=== PATIENT | female | born 1945 | race Caucasian/White ===

== ENCOUNTER 2017-06-05 18:42 | Inpatient (IN) | payer OTHER ==
[2017-06-05] MEDS ORDERED: ZOSYN VIAL 2.25 GM 2.25 GM in NS 100 ML IV + SPIKE MINIBAG* 100 ML IV SCH (20:52)
[2017-06-05 21:58] LABS: BASOPHILS % (AUTO) 0.6 % (0.2-1.0); EOSINOPHILS % (AUTO) 0.2 % (0.9-2.9); HEMATOCRIT 32.4 % (36.0-47.0); LYMPHOCYTES # (AUTO) 2.1 X10^3/uL (1.3-2.9); LYMPHOCYTES % (AUTO) 32.4 % (21.0-51.0); MEAN CORPUSCULAR HEMOGLOBIN 33.1 pg (27.0-34.0); MEAN CORPUSCULAR HGB CONC 33.9 g/dL (33.0-35.0); MEAN CORPUSCULAR VOLUME 97.5 fL (80.0-100.0); MEAN PLATELET VOLUME 9.6 fL (7.4-11.0); MONOCYTES # (AUTO) 0.6 x10^3/uL (0.3-0.8); MONOCYTES % (AUTO) 8.5 % (0.0-13.0); NEUTROPHILS # (AUTO) 3.9 x10^3/uL (2.2-4.8); NEUTROPHILS % (AUTO) 58.3 % (42.0-75.0); PLATELET COUNT 113 X10^3/uL (150.0-450.0); RED BLOOD COUNT 3.32 X10^6/uL (3.5-5.4); WHITE BLOOD COUNT 6.6 X10^3/uL (3.6-10.0)
[2017-06-05 22:09] LABS: ALANINE AMINOTRANSFERASE 25 Units/L (12-78); ALBUMIN 3.7 g/dL (3.4-5.0); ALKALINE PHOSPHATASE 48 Units/L (46-116); ASPARTATE AMINO TRANSFERASE 39 Units/L (15-37); BLOOD UREA NITROGEN 41 mg/dL (7-18); CALCIUM 8.8 mg/dL (8.5-10.1); CARBON DIOXIDE 23.3 mmol/L (21-32); CHLORIDE 105 mmol/L (98-107); COR NA(FOR HYPERGLY) 143 mmol/L (136-145); CREATININE 2.71 mg/dL (0.55-1.02); SODIUM 142 mmol/L (136-145); TOTAL PROTEIN 6.5 g/dL (6.4-8.2); eGFR BLACK RACES 22 (>60); eGFR NON BLACK RACES 18 (>60)
[2017-06-05 22:12] LABS: LACTIC ACID 1.7 mmol/L (0.4-2.0)
--- NOTE | 2017-06-05 22:24 | RAD ---
History: Shortness of breath and cough Study: Portable AP chest Comparison: None Findings: The lungs are clear and the heart size is normal. There are pacer and defibrillator wires v ia the right subclavian vein. There is no edema or effusion. Impression: No acute cardiopulmonary disease demonstrated Reported By:
[2017-06-05] MEDS: NS 1000 ML 1,000 ML IV SCH ×2 (22:30→23:21)
[2017-06-05] MEDS ORDERED: NS 100 ML IV 100 ML IV ONE ×2 (22:38→23:26)
[2017-06-05] MEDS ORDERED: ZOSYN VIAL 2.25 GM IV ONE (22:38)
[2017-06-05] MEDS ORDERED: NORCO 5/325 MG TAB PO PRN (23:05)
[2017-06-05] MEDS ORDERED: INSULIN ASPART 1 UNIT SQ PRN (23:05)
[2017-06-05] MEDS ORDERED: MERREM VIAL ONE (23:26)
[2017-06-05] MEDS ORDERED: MERREM PREMIX IV 500 MG 500 MG/50 ML BAG IV SCH (23:45)
[2017-06-06 06:11] LABS: BASOPHILS % (AUTO) 0.6 % (0.2-1.0); EOSINOPHILS % (AUTO) 0.2 % (0.9-2.9); HEMATOCRIT 31.3 % (36.0-47.0); HEMOGLOBIN 10.8 g/dL (12.0-16.0); LYMPHOCYTES # (AUTO) 2.6 X10^3/uL (1.3-2.9); MEAN CORPUSCULAR HEMOGLOBIN 33.2 pg (27.0-34.0); MEAN CORPUSCULAR HGB CONC 34.4 g/dL (33.0-35.0); MEAN CORPUSCULAR VOLUME 96.7 fL (80.0-100.0); MEAN PLATELET VOLUME 9.7 fL (7.4-11.0); MONOCYTES # (AUTO) 0.5 x10^3/uL (0.3-0.8); MONOCYTES % (AUTO) 7.3 % (0.0-13.0); NEUTROPHILS # (AUTO) 4.1 x10^3/uL (2.2-4.8); NEUTROPHILS % (AUTO) 55.9 % (42.0-75.0); PLATELET COUNT 130 X10^3/uL (150.0-450.0); RED BLOOD COUNT 3.24 X10^6/uL (3.5-5.4); RED CELL DISTRIBUTION WIDTH 16.2 % (11.6-16.5); WHITE BLOOD COUNT 7.3 X10^3/uL (3.6-10.0)
[2017-06-06 06:38] LABS: ALANINE AMINOTRANSFERASE 25 Units/L (12-78); ALBUMIN 3.4 g/dL (3.4-5.0); ALKALINE PHOSPHATASE 43 Units/L (46-116); ASPARTATE AMINO TRANSFERASE 36 Units/L (15-37); BLOOD UREA NITROGEN 40 mg/dL (7-18); CALCIUM 8.7 mg/dL (8.5-10.1); CHLORIDE 105 mmol/L (98-107); CREATININE 2.76 mg/dL (0.55-1.02); SODIUM 144 mmol/L (136-145); TOTAL PROTEIN 6.4 g/dL (6.4-8.2); eGFR BLACK RACES 22 (>60); eGFR NON BLACK RACES 18 (>60)
[2017-06-06] MEDS ORDERED: HumuLIN R SUBCUT PRN (08:00)
--- NOTE | 2017-06-06 08:04 | DR.H&P ---
H&P - History & Physical for Day of: H&P Date: 06/05/17 - Chief Complaint Chief Complaint: Weakness, Nausea and vomiting - Allergies Allergies/Adverse Reactions: Allergies Allergy/AdvReac Type Severity Reaction Status Date / Time Penicillins Allergy Verified 06/05/17 20:51 - History of Present Illness History of Present Illness: The patient is a 72-year-old white female who is having increasing generalized weakness fatigue with associated nausea and vomiting. The patient has a urinary tract infection and was started on Cipro. Urine culture did come back with greater than 100,000 Escherichia coli. Resistant to Cipro. Patient was started on Macrobid. Patient creatinine is increasing from baseline of 1.9-2.3. Lactic acid was obtained and was 3.6. Patient is not tolerating pushing by mouth fluids. Will admit for IV antibiotics, IV hydration. Note urine culture sensitivity is sensitive to cefoxitin, Pipercillin and Macrobid and intermediate sensitive to Augmentin. Patient does have penicillin allergy. - Past Medical History Past Medical History: CHF, CVA, Diabetes, Hypertension, Hypothyroidism, Sleep Apnea Additional Medical History: Colon Cancer Hx - Past Surgical History Surgical History: Angioplasty/Stents, Appendectomy, Cholecystectomy - Family History Family Medical History: Diabetes Mellitus, Hypertension - Social History Does patient currently use any type of tobacco product: No Have you used tobacco products in the last 12 months: No Type of Tobacco Use: None Does any household member use tobacco: No Alcohol Use: None Drug Use: None - Medications Home Medications: Aspirin EC [ASPIRIN EC 81 MG *] 1 tab PO DAILY 06/05/17 [History Confirmed 06/05] Atorvastatin Calcium 1 tab PO BID 06/05/17 [History Confirmed 06/05/17] Carvedilol [COREG TAB 12.5 MG *] 0.5 tab PO BID 06/05/17 [History Confirmed 10/16] Cholecalciferol (Vitamin D3) [Vitamin D3] 1 tab PO DAILY 06/05/17 [History Confirmed 06/05/17] Clopidogrel Bisulfate [PLAVIX TAB 75 MG *] 1 tab PO DAILY 06/05/17 [History Confirmed 06/05/17] Furosemide [LASIX TAB 40 MG *] 1 tab PO DAILY 06/05/17 [History Confirmed ] Gabapentin 1 cap PO HS 06/05/17 [History Confirmed 06/05/17] Hydrocodone-Acet 5 mg/325 mg [NORCO 5 MG/325 MG *] 1 tab PO PRN PRN 06/05/17 [ History Confirmed 06/05/17] Insulin Aspart [NovoLog insulin 10 mL vial] 0 units SQ PRN PRN 06/05/17 [ History Confirmed 06/05/17] Insulin Glargine (Lantus) [LANTUS INSULIN 10 ML VIAL *] 15 - 18 units SQ HS 10/16 [History Confirmed 06/05/17] Levothyroxine Sodium 1 tab PO DAILY 06/05/17 [History Confirmed 06/05/17] Omeprazole 1 cap PO DAILY 06/05/17 [History Confirmed 06/05/17] Paroxetine HCl [PAXIL 20 MG (generic) *] 1 tab PO HS 06/05/17 [History Confirmed 06/05/17] Potassium Chloride [K-DUR TAB 20 mEq *] 1 tab PO DAILY 06/05/17 [History Confirmed 06/05/17] Ranolazine [RANEXA 500 MG *] 1 tab PO BID 06/05/17 [History Confirmed 06/05/17] Sacubitril/Valsartan [Entresto 49 mg-51 mg Tablet] 1 tab PO BID 06/05/17 [ History Confirmed 06/05/17] - Review of Systems Constitutional: Weakness, Malaise Eyes: No Symptoms Reported ENT: No Symptoms Reported Respiratory: No Symptoms Reported Cardiovascular: No Symptoms Reported Gastrointestinal: Nausea, Vomiting Genitourinary: Dysuria Musculoskeletal: No Symptoms Reported Skin: No Symptoms Reported Neurological: No Symptoms Reported - Physical Exam Vital Signs: Temperature 98.0 F Pulse Rate [Left Brachial] 71 Respiratory Rate 25 Blood Pressure [Right Arm] 135/61 O2 Sat by Pulse Oximetry 99 Oriented: Normal Eyes: Normal Ear: Normal Nose: Normal Throat: Normal Respiratory: Clear Throughout Cardiovascular: Normal : Normal Auscultation: Bowel Sounds: Normal Palpation: Normal Tenderness: Suprapubic Skin: Decreased Turgur Musculoskeletal: Normal, Motor Deficit Psychiatric: Normal Mood Description: Calm Affect: Normal Speech Pattern: Clear - Assessment/Plan (1) E. coli UTI Status: Acute Plan: IV antibiotics (2) Acute on chronic kidney failure Status: Acute Plan: IV Hydration, Labs (3) Dehydration Status: Acute Plan: IV Hydration, Labs
[2017-06-06] MEDS ORDERED: PATIENT'S HOME MEDICATION (Atorvastatin Calcium [Atorvastatin Calcium] 1 TAB) PO SCH ×2 (09:00→21:00)
[2017-06-06] MEDS ORDERED: PATIENT'S HOME MEDICATION (Cholecalciferol (Vitamin D3) [Vitamin D3] 1 TAB) PO SCH (09:00)
[2017-06-06] MEDS ORDERED: PATIENT'S HOME MEDICATION (Omeprazole [Omeprazole] 1 CAP) PO SCH (09:00)
[2017-06-06] MEDS ORDERED: SACUBITRIL PO SCH (09:00)
[2017-06-06] MEDS ORDERED: VALSARTAN PO SCH (09:00)
[2017-06-06 09:27] LABS: BILIRUBIN,URINE NEGATIVE (NEGATIVE); BLOOD/HEMOGLOBIN,URINE NEGATIVE (NEGATIVE); GLUCOSE, URINE NEGATIVE (NEGATIVE); KETONES,URINE NEGATIVE (NEGATIVE); LEUKOCYTE ESTERASE ,URINE 2+ (NEGATIVE); NITRITES,URINE NEGATIVE (NEGATIVE); PROTEIN,URINE NEGATIVE (NEGATIVE); UROBILINOGEN,URINE NORMAL (NORMAL)
[2017-06-06 09:39] LABS: APPEARANCE,URINE HAZY (CLEAR); COLOR,URINE DARK YELLOW (YELLOW)
[2017-06-06 09:40] LABS: BACTERIA,URINE 1+ /HPF (NEGATIVE); RBC,URINE 0-2 /HPF (NONE SEEN); SQUAMOUS EPITHELIAL CELL,UR FEW /HPF (NEGATIVE)
[2017-06-06] MEDS: NS 1000 ML 1,000 ML IV SCH ×3 (10:31→20:57)
[2017-06-06] MEDS: PLAVIX PO SCH (10:35)
[2017-06-06] MEDS: COREG TAB 12.5 MG PO SCH ×2 (10:35→20:33)
[2017-06-06] MEDS: ASPIRIN EC 81 MG PO SCH (10:36)
[2017-06-06] MEDS: K-DUR TAB 20 MEQ PO SCH (10:36)
[2017-06-06] MEDS: PriLOSEC PO SCH (10:36)
[2017-06-06] MEDS: RANEXA PO SCH ×2 (10:37→20:58)
[2017-06-06] MEDS: VITAMIN D3 PO SCH (10:37)
[2017-06-06] MEDS: SYNTHROID 175 mcg TAB PO SCH (10:37)
[2017-06-06] MEDS: NORCO 5/325 MG TAB PO SCH ×2 (10:37→20:35)
[2017-06-06] MEDS: MERREM VIAL 500 MG in NS 100 ML IV 100 ML IV SCH ×2 (10:39→20:33)
--- NOTE | 2017-06-06 12:06 | CT ---
STUDY: CT HEAD WITHOUT CONTRAST HISTORY: Altered mental status. COMPARISON: None. TECHNIQUE: Multiple axial images of the head were obtained from the skull base to the vertex without administration of IV contrast. Automated exposure control (AEC) was utilized to adjust the MA and/or kV. Findings: The sulci, cisterns and ventricles are prominent consistent with diffuse volume loss. There are scattered foci of low attenuation in the periventricular and subcortical white matter of mahsa th hemispheres. This is a nonspecific finding which likely represents microangiopathic change in a pa tient of this age. There is a focus of low attenuation in the posterior left frontal centrum semiovale and worrell radiat a. There is no evidence of acute hemorrhage, mass, mass effect or midline shift. There are no abnorma l extra-axial fluid collections. There is no evidence of acute osseous abnormality or significant soft tissue swelling. IMPRESSION: 1. Low-attenuation focus in the left frontal centrum semiovale and worrell radiata. This may represent an age indeterminate infarct. MRI examination the brain with diffusion-weighted images is recommende d for further evaluation. 2. Nonspecific white matter change and volume loss as described. Reported By:
[2017-06-06] MEDS ORDERED: BUTT CREAM (COMPOUND) ONE (16:53)
[2017-06-06] MEDS: NEURONTIN CAP 100 MG PO SCH (20:33)
[2017-06-06] MEDS: LIPITOR TAB 40 MG PO SCH (20:33)
[2017-06-06] MEDS: PAXIL PO SCH (20:33)
[2017-06-06] MEDS: LANTUS SC SCH (20:41)
[2017-06-06] MEDS: SACUBITRIL PO SCH (20:44)
[2017-06-06] MEDS: VALSARTAN PO SCH (20:44)
[2017-06-07] MEDS: NS 1000 ML 1,000 ML IV SCH ×4 (01:24→21:07)
[2017-06-07 06:14] LABS: BASOPHILS % (AUTO) 0.5 % (0.2-1.0); EOSINOPHILS % (AUTO) 0.4 % (0.9-2.9); HEMATOCRIT 30.1 % (36.0-47.0); HEMOGLOBIN 10.4 g/dL (12.0-16.0); LYMPHOCYTES # (AUTO) 1.6 X10^3/uL (1.3-2.9); LYMPHOCYTES % (AUTO) 29.9 % (21.0-51.0); MEAN CORPUSCULAR HEMOGLOBIN 33.3 pg (27.0-34.0); MEAN CORPUSCULAR HGB CONC 34.5 g/dL (33.0-35.0); MEAN CORPUSCULAR VOLUME 96.6 fL (80.0-100.0); MEAN PLATELET VOLUME 9.3 fL (7.4-11.0); MONOCYTES # (AUTO) 0.4 x10^3/uL (0.3-0.8); MONOCYTES % (AUTO) 7.8 % (0.0-13.0); NEUTROPHILS # (AUTO) 3.4 x10^3/uL (2.2-4.8); NEUTROPHILS % (AUTO) 61.4 % (42.0-75.0); PLATELET COUNT 103 X10^3/uL (150.0-450.0); RED BLOOD COUNT 3.11 X10^6/uL (3.5-5.4); RED CELL DISTRIBUTION WIDTH 16.1 % (11.6-16.5); WHITE BLOOD COUNT 5.5 X10^3/uL (3.6-10.0)
[2017-06-07 06:32] LABS: ALANINE AMINOTRANSFERASE 24 Units/L (12-78); ALBUMIN 3.2 g/dL (3.4-5.0); ALKALINE PHOSPHATASE 37 Units/L (46-116); ASPARTATE AMINO TRANSFERASE 30 Units/L (15-37); BLOOD UREA NITROGEN 36 mg/dL (7-18); CALCIUM 8.1 mg/dL (8.5-10.1); CARBON DIOXIDE 26.7 mmol/L (21-32); CHLORIDE 108 mmol/L (98-107); COR CA(FOR HYPOALB) 8.7 mg/dL (8.5-10.1); CREATININE 2.18 mg/dL (0.55-1.02); SODIUM 145 mmol/L (136-145); TOTAL PROTEIN 5.9 g/dL (6.4-8.2); eGFR BLACK RACES 29 (>60); eGFR NON BLACK RACES 24 (>60)
[2017-06-07] MEDS: RANEXA PO SCH ×2 (08:44→21:05)
[2017-06-07] MEDS: COREG TAB 12.5 MG PO SCH ×2 (08:44→21:06)
[2017-06-07] MEDS: VITAMIN D3 PO SCH (08:44)
[2017-06-07] MEDS: ASPIRIN EC 81 MG PO SCH (08:44)
[2017-06-07] MEDS: SYNTHROID 175 mcg TAB PO SCH (08:44)
[2017-06-07] MEDS: MERREM VIAL 500 MG in NS 100 ML IV 100 ML IV SCH (08:45)
[2017-06-07] MEDS: PriLOSEC PO SCH (08:45)
[2017-06-07] MEDS: NORCO 5/325 MG TAB PO SCH ×2 (08:45→21:06)
[2017-06-07] MEDS: K-DUR TAB 20 MEQ PO SCH (08:45)
[2017-06-07] MEDS: PLAVIX PO SCH (08:46)
[2017-06-07] MEDS: VALSARTAN PO SCH ×2 (08:47→21:08)
[2017-06-07] MEDS: SACUBITRIL PO SCH ×2 (08:47→21:08)
[2017-06-07 09:34] VITALS: BMI 26.6
--- NOTE | 2017-06-07 13:47 | PCM.PROG ---
Progress Note - Progress Note for Day of Date: 06/07/17 - Subjective Subjective: 72 WF DIRECT ADMIT FOR FAILED OUTPT THERAPY FOR UTI WITH REPORTS OF INCREASED CONFUSION PER FAMILY. PT IS CURRENTLY ONLY IV ATBX, URINE CULTURE PENDING. PT DENIES ANY PAIN CO SOB THIS AM. FAMILY AT BEDSIDE. - Past Medical Family Social History Past Med/Fam/Surg Hx: No changes since H&P Allergies: Allergies Penicillins Allergy (Verified 06/05/17 20:51) - Review of Systems ROS: No change since H&P - Vital Signs and I&O's Vital Signs: Temperature 97.7 F Pulse Rate [Left Brachial] 66 Respiratory Rate 15 Blood Pressure [Right Arm] 107/61 O2 Sat by Pulse Oximetry 100 Intake and Output: Intake & Output 06/05/17 06/06/17 06/07/17 06/08/17 11:59 11:59 11:59 11:59 Intake Total 520 1720 Output Total 125 Balance 520 1595 - Physical Exam Oriented: Normal Eyes: Normal Ear: Normal Nose: Normal Throat: Normal Respiratory: Diminished Cardiovascular: Normal : Normal Auscultation: Bowel Sounds: Normal Tenderness: Suprapubic Skin: Decreased Turgur Musculoskeletal: Normal, Motor Deficit Psychiatric: Normal Mood Description: Calm Affect: Normal Speech Pattern: Appropriate, Unclear, Excessive - Laboratory and Diagnostics Result Diagrams: 06/07/17 05:45 06/07/17 05:45 Labs: 06/06/17 09:13 Urine,Clean Catch Urine Culture - Preliminary 06/05/17 21:14 Blood Blood Culture - Preliminary Laboratory WBC 5.5 X10^3/uL (3.6-10.0) 06/07/17 05:45 RBC 3.11 X10^6/uL (3.5-5.4) L 06/07/17 05:45 Hgb 10.4 g/dL (12.0-16.0) L 06/07/17 05:45 Hct 30.1 % (36.0-47.0) L 06/07/17 05:45 MCV 96.6 fL (80.0-100.0) 06/07/17 05:45 MCH 33.3 pg (27.0-34.0) 06/07/17 05:45 MCHC 34.5 g/dL (33.0-35.0) 06/07/17 05:45 RDW 16.1 % (11.6-16.5) 06/07/17 05:45 Plt Count 103 X10^3/uL (150.0-450.0) L 06/07/17 05:45 MPV 9.3 fL (7.4-11.0) 06/07/17 05:45 Neut % 61.4 % (42.0-75.0) 06/07/17 05:45 Lymph % 29.9 % (21.0-51.0) 06/07/17 05:45 [place] % 7.8 % (0.0-13.0) 06/07/17 05:45 Eos % 0.4 % (0.9-2.9) L 06/07/17 05:45 Baso % 0.5 % (0.2-1.0) 06/07/17 05:45 Neut # 3.4 x10^3/uL (2.2-4.8) 06/07/17 05:45 Lymph # 1.6 X10^3/uL (1.3-2.9) 06/07/17 05:45 [place] # 0.4 x10^3/uL (0.3-0.8) 06/07/17 05:45 Eos # 0.0 x10^3/uL (0.0-0.2) 06/07/17 05:45 Baso # 0.0 X10^3/uL (0.0-0.1) 06/07/17 05:45 Absolute Nucleated RBC 0.1 /100WBC 06/07/17 05:45 Sodium 145 mmol/L (136-145) 06/07/17 05:45 Corrected Sodium TNP 06/07/17 05:45 Potassium 3.4 mmol/L (3.5-5.1) L 06/07/17 05:45 Chloride 108 mmol/L (98-107) H 06/07/17 05:45 Carbon Dioxide 26.7 mmol/L (21-32) 06/07/17 05:45 BUN 36 mg/dL (7-18) H 06/07/17 05:45 Creatinine 2.18 mg/dL (0.55-1.02) H 06/07/17 05:45 Est GFR (MDRD) Af Amer 29 (>60) L 06/07/17 05:45 Est GFR (MDRD) Non-Af 24 (>60) L 06/07/17 05:45 Glucose 77 mg/dL (65-99) 06/07/17 05:45 POC Glucose (mg/dL) 97 mg/dL (65-99) 06/07/17 12:06 Lactic Acid 1.6 mmol/L (0.4-2.0) 06/06/17 09:20 Calcium 8.1 mg/dL (8.5-10.1) L 06/07/17 05:45 Corrected Calcium 8.7 mg/dL (8.5-10.1) 06/07/17 05:45 Total Bilirubin 0.70 mg/dL (0.2-1.0) 06/07/17 05:45 AST 30 Units/L (15-37) 06/07/17 05:45 ALT 24 Units/L (12-78) 06/07/17 05:45 Alkaline Phosphatase 37 Units/L (46-116) L 06/07/17 05:45 Total Protein 5.9 g/dL (6.4-8.2) L 06/07/17 05:45 Albumin 3.2 g/dL (3.4-5.0) L 06/07/17 05:45 Globulin 2.7 g/dL (2.5-4.5) 06/07/17 05:45 Albumin/Globulin Ratio 1.2 Ratio (1.1-2.1) 06/07/17 05:45 Specimen Type Clean catch urine 06/06/17 09:13 Urine Color Dark yellow (YELLOW) 06/06/17 09:13 Urine Appearance Hazy (CLEAR) 06/06/17 09:13 Urine pH 5.0 (5.0 - 8.0) 06/06/17 09:13 Ur Specific [place] 1.020 (1.000-1.030) 06/06/17 09:13 Urine Protein Negative (NEGATIVE) 06/06/17 09:13 Urine Glucose (UA) Negative (NEGATIVE) 06/06/17 09:13 Urine Ketones Negative (NEGATIVE) 06/06/17 09:13 Urine Occult Blood Negative (NEGATIVE) 06/06/17 09:13 Urine Nitrite Negative (NEGATIVE) 06/06/17 09:13 Urine Bilirubin Negative (NEGATIVE) 06/06/17 09:13 Urine Urobilinogen Normal (NORMAL) 06/06/17 09:13 Ur Leukocyte Esterase 2+ (NEGATIVE) 06/06/17 09:13 Urine RBC 0-2 /HPF (NONE SEEN) 06/06/17 09:13 Urine WBC 15-20 /HPF (NONE SEEN) 06/06/17 09:13 Ur Squamous Epith Cells Few /HPF (NEGATIVE) 06/06/17 09:13 Urine Bacteria 1+ /HPF (NEGATIVE) 06/06/17 09:13 Ur Culture Indicated? Yes/culture set up 06/06/17 09:13 - Plan (1) UTI (urinary tract infection) Status: Acute Plan: CONTINUE IB ATBX, CULTURES PENDING. REPEAT AM LABS. CONTINUE BP AND CARDIAC MONITORING. I & OS, PT, OT (2) CHF (congestive heart failure) Status: Acute (3) CAD (coronary artery disease) Status: Acute (4) Hypertension Status: Acute (5) Vascular dementia Status: Acute (6) Acute on chronic kidney failure Status: Acute Plan: IV Hydration, Labs
[2017-06-07] MEDS ORDERED: HALDOL INJ IVP ONE (20:30)
[2017-06-07] MEDS: CIPRO IV 400 MG PREMIX* 400 MG/200 ML IV.SOLN. IV SCH (21:04)
[2017-06-07] MEDS: LIPITOR TAB 40 MG PO SCH (21:06)
[2017-06-07] MEDS: NEURONTIN CAP 100 MG PO SCH (21:06)
[2017-06-07] MEDS: PAXIL PO SCH (21:07)
[2017-06-07] MEDS: LANTUS SC SCH (21:10)
--- NOTE | 2017-06-07 22:20 | CT ---
CT head without contrast Indication: Confusion, agitation Comparison: 06/06/2017 Technique: CT images of the head were obtained without contrast. Automatic exposure control was utili Pycnod. Findings: There are again patchy areas of periventricular and deep white matter hypoattenuation. More focal area of hypoattenuation within the left frontal centrum semiovale and worrell radiata is unchan ged. There is no evidence for acute bleed, mass effect, or abnormal extra-axial collection. No signif icant skeletal abnormality. The visualized paranasal sinuses are grossly clear aside from opacificati on of a posterior right ethmoid air cell, unchanged. Impression: No significant change from prior. Reported By:
[2017-06-08] MEDS ORDERED: HALDOL INJ IVP ONE (02:45)
[2017-06-08] MEDS: NS 1000 ML 1,000 ML IV SCH ×3 (05:17→20:27)
[2017-06-08 06:08] LABS: BASOPHILS % (AUTO) 0.4 % (0.2-1.0); EOSINOPHILS % (AUTO) 0.5 % (0.9-2.9); HEMATOCRIT 28.1 % (36.0-47.0); HEMOGLOBIN 9.9 g/dL (12.0-16.0); LYMPHOCYTES # (AUTO) 1.8 X10^3/uL (1.3-2.9); LYMPHOCYTES % (AUTO) 31.8 % (21.0-51.0); MEAN CORPUSCULAR HEMOGLOBIN 33.9 pg (27.0-34.0); MEAN CORPUSCULAR HGB CONC 35.3 g/dL (33.0-35.0); MEAN CORPUSCULAR VOLUME 96.2 fL (80.0-100.0); MEAN PLATELET VOLUME 9.6 fL (7.4-11.0); MONOCYTES # (AUTO) 0.5 x10^3/uL (0.3-0.8); MONOCYTES % (AUTO) 9.1 % (0.0-13.0); NEUTROPHILS # (AUTO) 3.2 x10^3/uL (2.2-4.8); NEUTROPHILS % (AUTO) 58.2 % (42.0-75.0); PLATELET COUNT 92 X10^3/uL (150.0-450.0); RED BLOOD COUNT 2.92 X10^6/uL (3.5-5.4); RED CELL DISTRIBUTION WIDTH 15.7 % (11.6-16.5); WHITE BLOOD COUNT 5.5 X10^3/uL (3.6-10.0)
[2017-06-08 06:21] LABS: ALANINE AMINOTRANSFERASE 23 Units/L (12-78); ALBUMIN 3.1 g/dL (3.4-5.0); ALKALINE PHOSPHATASE 38 Units/L (46-116); ASPARTATE AMINO TRANSFERASE 32 Units/L (15-37); BLOOD UREA NITROGEN 34 mg/dL (7-18); CALCIUM 8.1 mg/dL (8.5-10.1); CARBON DIOXIDE 25.3 mmol/L (21-32); CHLORIDE 110 mmol/L (98-107); COR CA(FOR HYPOALB) 8.8 mg/dL (8.5-10.1); CREATININE 2.08 mg/dL (0.55-1.02); SODIUM 144 mmol/L (136-145); TOTAL PROTEIN 5.7 g/dL (6.4-8.2); eGFR BLACK RACES 30 (>60); eGFR NON BLACK RACES 25 (>60)
--- NOTE | 2017-06-08 06:23 | RAD ---
Chest, AP portable Indication: CHF Comparison: 06/05/2017 Findings: Cardiac silhouette and right subclavian approach cardiac device and leads are stable. The l ungs are mildly hypoinflated but essentially clear without overt edema, focal infiltrates, or large p leural effusion. Impression: No acute chest process or significant change from prior. Reported By:
[2017-06-08] MEDS: PLAVIX PO SCH (09:15)
[2017-06-08] MEDS: NORCO 5/325 MG TAB PO SCH (09:16)
[2017-06-08] MEDS: RANEXA PO SCH ×2 (09:17→20:28)
[2017-06-08] MEDS: SYNTHROID 175 mcg TAB PO SCH (09:17)
[2017-06-08] MEDS: K-DUR TAB 20 MEQ PO SCH (09:17)
[2017-06-08] MEDS: COREG TAB 12.5 MG PO SCH ×2 (09:18→20:29)
[2017-06-08] MEDS: VALSARTAN PO SCH ×2 (09:18→20:28)
[2017-06-08] MEDS: SACUBITRIL PO SCH ×2 (09:18→20:28)
[2017-06-08] MEDS: VITAMIN D3 PO SCH (09:19)
[2017-06-08] MEDS: ASPIRIN EC 81 MG PO SCH (09:19)
[2017-06-08] MEDS: PriLOSEC PO SCH (10:00)
[2017-06-08 11:14] LABS: BILIRUBIN,URINE NEGATIVE (NEGATIVE); BLOOD/HEMOGLOBIN,URINE NEGATIVE (NEGATIVE); GLUCOSE, URINE NEGATIVE (NEGATIVE); KETONES,URINE NEGATIVE (NEGATIVE); LEUKOCYTE ESTERASE ,URINE 1+ (NEGATIVE); NITRITES,URINE NEGATIVE (NEGATIVE); PROTEIN,URINE 1+ (NEGATIVE); UROBILINOGEN,URINE NORMAL (NORMAL)
[2017-06-08 11:28] LABS: APPEARANCE,URINE SLIGHTLY HAZY (CLEAR); COLOR,URINE YELLOW (YELLOW); RBC,URINE NEGATIVE /HPF (NONE SEEN); SQUAMOUS EPITHELIAL CELL,UR FEW /HPF (NEGATIVE)
[2017-06-08 11:29] LABS: BACTERIA,URINE TRACE /HPF (NEGATIVE)
[2017-06-08] MEDS ORDERED: NORCO 5/325 MG TAB PO PRN (17:19)
[2017-06-08] MEDS: MILK OF MAGNESIA PO SCH (20:27)
[2017-06-08] MEDS: PAXIL PO SCH (20:28)
[2017-06-08] MEDS: LIPITOR TAB 40 MG PO SCH (20:30)
[2017-06-08] MEDS: LANTUS SC SCH (20:31)
[2017-06-08] MEDS: CIPRO IV 400 MG PREMIX* 400 MG/200 ML IV.SOLN. IV SCH (20:53)
[2017-06-08] MEDS ORDERED: COLACE CAP 100 MG PO SCH (21:00)
[2017-06-09 06:07] LABS: BASOPHILS % (AUTO) 0.5 % (0.2-1.0); EOSINOPHILS % (AUTO) 0.5 % (0.9-2.9); HEMATOCRIT 26.7 % (36.0-47.0); HEMOGLOBIN 9.3 g/dL (12.0-16.0); LYMPHOCYTES # (AUTO) 1.8 X10^3/uL (1.3-2.9); LYMPHOCYTES % (AUTO) 36.6 % (21.0-51.0); MEAN CORPUSCULAR HEMOGLOBIN 33.9 pg (27.0-34.0); MEAN CORPUSCULAR HGB CONC 34.8 g/dL (33.0-35.0); MEAN CORPUSCULAR VOLUME 97.3 fL (80.0-100.0); MEAN PLATELET VOLUME 9.6 fL (7.4-11.0); MONOCYTES # (AUTO) 0.4 x10^3/uL (0.3-0.8); MONOCYTES % (AUTO) 8.2 % (0.0-13.0); NEUTROPHILS # (AUTO) 2.7 x10^3/uL (2.2-4.8); NEUTROPHILS % (AUTO) 54.2 % (42.0-75.0); PLATELET COUNT 85 X10^3/uL (150.0-450.0); RED BLOOD COUNT 2.74 X10^6/uL (3.5-5.4); RED CELL DISTRIBUTION WIDTH 15.8 % (11.6-16.5); WHITE BLOOD COUNT 4.9 X10^3/uL (3.6-10.0)
[2017-06-09 06:12] LABS: ALBUMIN 2.7 g/dL (3.4-5.0); CALCIUM 7.7 mg/dL (8.5-10.1); COR CA(FOR HYPOALB) 8.7 mg/dL (8.5-10.1); CREATININE 1.8 mg/dL (0.55-1.02); TOTAL PROTEIN 5.3 g/dL (6.4-8.2)
[2017-06-09] MEDS: SYNTHROID 175 mcg TAB PO SCH (08:45)
[2017-06-09] MEDS: VITAMIN D3 PO SCH (08:45)
[2017-06-09] MEDS: RANEXA PO SCH (08:45)
[2017-06-09] MEDS: MILK OF MAGNESIA PO SCH (08:46)
[2017-06-09] MEDS: PriLOSEC PO SCH (08:46)
[2017-06-09] MEDS: ASPIRIN EC 81 MG PO SCH (08:46)
[2017-06-09] MEDS: K-DUR TAB 20 MEQ PO SCH (08:46)
[2017-06-09] MEDS: SACUBITRIL PO SCH (08:46)
[2017-06-09] MEDS: COREG TAB 12.5 MG PO SCH (08:46)
[2017-06-09] MEDS: VALSARTAN PO SCH (08:46)
[2017-06-09] MEDS: PLAVIX PO SCH (08:47)
[2017-06-09 11:08] VITALS: BP 126/56
== END 2017-06-09 11:52 | disposition home health service (06) | DRG 690 ==
LOC: ICU 18:42
PROVIDERS: ADMIT Internal Medicine; ATTEND Internal Medicine
DX: N39.0 Urinary tract infection, site not specified (principal); B96.29 Other Escherichia coli [E. coli] as the cause of diseases classified elsewhere; R94.4 Abnormal results of kidney function studies; N18.9 Chronic kidney disease, unspecified; N17.8 Other acute kidney failure; E86.0 Dehydration; R53.1 Weakness; R11.2 Nausea with vomiting, unspecified; E11.65 Type 2 diabetes mellitus with hyperglycemia; I12.9 Hypertensive chronic kidney disease with stage 1 through stage 4 chronic kidney disease, or unspecified chronic kidney disease; E03.8 Other specified hypothyroidism; I50.9 Heart failure, unspecified; I25.10 Atherosclerotic heart disease of native coronary artery without angina pectoris; F01.51 Vascular dementia, unspecified severity, with behavioral disturbance; Z66 Do not resuscitate; R26.89 Other abnormalities of gait and mobility; Z79.4 Long term (current) use of insulin; R47.1 Dysarthria and anarthria
CPT/HCPCS: 36415; 70450; 71045; 80053; 81001; 83605; 85025; 87040; 87086; 93005; 93010; A4222; J0744; J1630; J1815; J2185; J2543